=== PATIENT | female | born 1975 | race Caucasian/White ===

== ENCOUNTER → 2017-10-23 | Outpatient (CLI) | payer OTHER ==
--- NOTE | 2017-10-23 21:41 | MR ---
EXAMINATION TYPE: MR knee LT wo con DATE OF EXAM: 10/23/2017 COMPARISON: NONE HISTORY: Medial meniscal tear pain x2 weeks TECHNIQUE: Multiplanar, multisequence imaging of the left knee is performed without IV contrast. FINDINGS: MEDIAL MENISCUS: There may be some minimal degenerative change in the posterior horn medial meniscus. No communication with an articular surface is evident. Anterior horn appears normal. Internal derang ement could be considered. LATERAL MENISCUS: No signal abnormality is evident to suggest a tear. CRUCIATE LIGAMENTS: The anterior and posterior cruciate ligaments are intact and unremarkable. COLLATERAL LIGAMENTS: The medial collateral ligament and lateral collateral ligament complex are inta ct and unremarkable. EXTENSOR MECHANISM: Visualized quadriceps and patellar tendons are intact. EFFUSION: No significant suprapatellar joint effusion. POPLITEAL CYST: No popliteal/leggett cyst. TRICOMPARTMENT SPACES: Compartment spaces appear preserved. CARTILAGE: Articular cartilage appears preserved. BONE MARROW SIGNAL: No focal abnormal marrow signal is appreciated. OTHER: No additional significant abnormality is appreciated. IMPRESSION: 1. Mild degenerative change or internal derangement posterior horn medial meniscus. 2. Otherwise normal MRI left knee.
== END | disposition home or self-care (01) ==
LOC: RADMRIMAIN 18:05
PROVIDERS: ATTEND Orthopaedic Surgery
DX: S83.242A Other tear of medial meniscus, current injury, left knee, initial encounter (principal)